=== PATIENT | male | born 1980 | race Caucasian/White ===

== ENCOUNTER 2017-03-28 20:30 | Inpatient (IN) | payer MEDICARE ==
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
--- NOTE | ~2017-03-28 | DS ---
Unit #: [id number] #: [id number] Patient: CARYN BEAN [id number] [facility] [address] [place] [address] [id number] I MR#: [id number] NAME: CARYN BEAN ROOM: P256 Age: 37 Sex: M Admission Date: 03/28/2017 : 1980 Discharge Date: 03/30/2017 Attending Physician: Nikunj Greene M.D. Primary Care Physician: Primary Care Physician No DISCHARGE SUMMARY REASON FOR ADMISSION Caryn is a 37-year-old man with a history of long-term disability due to traumatic brain injury and previous treatment for depression. He reported increasing stress in the household due to a pending divorce and increasing hopelessness, helplessness, and suicidal ideation. He had made multiple cuts on his left forearm and continued to express suicidal ideation with a plan to continue to cut until he bled to . He was unable to contract for safety and was admitted for stabilization. DIAGNOSTIC STUDIES LABORATORY RESULTS: Please see hospital chart. HOSPITAL COURSE Caryn was admitted and placed on suicide precautions. Seroquel 300 mg at bedtime for mood stability and sleep was continued, and we added Effexor XR 75 mg daily for depression, Keppra 500 mg b.i.d. was continued for treatment of his seizure disorder. He participated calmly and appropriately in unit groups and activities, and had phone conversations with his family members which also considerably improved his mood. The following day, he was able to contract for safety with a brighter affect and good mood, and no further suicidal ideation, intent, or plan. DISCHARGE DIAGNOSES AXIS I: Major depression, F33.2. AXIS II: No diagnosis. AXIS III: History of traumatic brain injury, history of epilepsy. AXIS IV: AXIS V: DISCHARGE INSTRUCTIONS Follow up with [facility]. DISCHARGE MEDICATIONS Effexor XR 75 mg daily for depression, Seroquel 300 mg at bedtime for mood stability and insomnia. Primary care medicine was Keppra 500 mg b.i.d. for seizures. CONDITION AT DISCHARGE Improved. PROGNOSIS Fair to good. Unit #: [id number] #: [id number] Patient: CARYN BEAN DIET AND ACTIVITY Ad abdirashid. Dictated by... Nikunj Greene M.D. [facility]/modl TD: 03/30/2017 20:34 JOB #: [id number] DISCHARGE SUMMARY Page 1 of 1 X Nikunj Greene MD DISCHARGE SUMMARY
[2017-03-29 09:56] LABS: BASOPHIL% 0.5 % (0-2.5); EOSINOPHIL# 0.1 X10e3 (0-0.7); EOSINOPHIL% 1.4 % (0.0-7.0); HEMATOCRIT 57.3 % (38.0-50.0); HEMOGLOBIN 19.6 gm/dL (13.0-16.0); LYMPHOCYTE# 2.3 X10e3 (1.0-3.5); LYMPHOCYTE% 31.5 % (17.0-45.0); MEAN CELL VOLUME 97.5 FL (83-96); MEAN CORPUSCULAR HEMOGLOBIN 33.4 PG (28-34); MEAN CORPUSCULAR HGB CONC 34.2 g/dL (30-36); MEAN PLATELET VOLUME 8.5 FL (6.5-11.5); MONOCYTE# 0.6 X10e3 (0-1.0); MONOCYTE% 8.3 % (3.0-12.0); NEUTROPHIL# 4.2 X10e3 (1.5-7.1); NEUTROPHIL% 58.3 % (40-75); PLATELET COUNT 198 X10e3 (140-420); RED BLOOD COUNT 5.88 X10e (3.90-5.60); RED CELL DISTRIBUTION WIDTH 13.9 % (11.0-15.5); WHITE BLOOD COUNT 7.2 X10e3 (4.0-10.5)
[2017-03-29 10:01] LABS: DIFF IND NO
[2017-03-29 10:21] LABS: ALBUMIN SERUM 4.5 g/dL (3.5-5.0); BILIRUBIN,TOTAL 1.7 mg/dL (0.2-2.0); CALCIUM SERUM 9.9 mg/dL (8.4-10.2); GLOM FILT RATE Estimated 95.1 mL/min (>60); POTASSIUM 4.7 mmol/L (3.5-5.1); PROTEIN TOTAL SERUM 7.4 g/dL (6.0-8.3)
== END 2017-03-30 12:40 | disposition home or self-care (01) | DRG 885 ==
LOC: P2L 23:36
PROVIDERS: Psychiatry & Neurology Psychiatry
DX: F33.2 Major depressive disorder, recurrent severe without psychotic features (principal); G40.909 Epilepsy, unspecified, not intractable, without status epilepticus; R45.851 Suicidal ideations; Z87.820 Personal history of traumatic brain injury; F17.210 Nicotine dependence, cigarettes, uncomplicated; T14.8 Other injury of unspecified body region; X83.8XXA Intentional self-harm by other specified means, initial encounter
CPT/HCPCS: 80053; 85025